=== PATIENT | male | born 1990 | race Caucasian/White ===

== ENCOUNTER 2017-03-05 10:31 | Inpatient (IN) | payer MEDICAID ==
[~2017-03-05] VITALS: Ht 157.5 cm; Wt 92.7 kg
[2017-03-05] VITALS (8 sets, daily range): BP systolic 108–126; BP diastolic 57–83; PULSE 69–98; RESP 16–20; TEMP 97.4–98.7; O2SAT 97–100
[~2017-03-05 10:31] MED LIST: ARIP1TAB13 PO; CITA40TA4 PO; CLON0.1T PO; DIVA250T PO; DIVA500T PO; FERR325T2 PO; FLUT1SPR5 EACH NARE; GLYC1TAB15 PO; HYDR-3580 PO; MOBI15TA PO; MONT10TA4 PO; OMEP40CA2 PO; OXYB5TAB10 PO; TRAZ50TA12 PO; [UNRECOGNIZED DRUG - CODE]
[2017-03-05] MEDS ORDERED: SODIUM CHLOR 0.9% 1000 ML INJ 1,000 ML IV SCH (11:06)
--- NOTE | 2017-03-05 11:13 | PD ---
HPI Chief Complaint: Abnormal Results Time Seen by Provider: 10:49 Travel History International Travel<30 days: No Contact w/Intl Traveler<30days: No Traveled to known affect area: No History of Present Illness HPI The patient is a 26-year-old male who presents emergency department for generalized malaise, edema, and constipation. The patient has a history of cerebral palsy, has a suprapubic catheter in place and has a normal history of constipation in the right upper colon, has a special pigtail catheter that can be irrigated every other day. However, the mother states he was irrigated yesterday and the patient had no bowel movement. The patient is followed by Dr. Storm in [place], [place]. The patient is followed by his urologist, Dr. Sena, who changed out his catheter earlier today and sent him to the emergency department for further evaluation of generalized edema. Patient does have a history of edema to lower extremity is, now notes he has edema to the face and lower extremities. The mother also states the patient's abdomen appears somewhat distended. She states she has a history of a large ventral hernia. The patient denies any chest pain, shortness breath, fever, chills, or sweats. PFSH Past Medical History Hx Anticoagulant Therapy: Yes ("THINKS SO" PER CAREGIVER) Anxiety: Yes Cardiovascular Problems: Yes Diminished Hearing: No Gastrointestinal Disorders: Yes Psychiatric: Yes Respiratory: Yes Tetanus Vaccination: < 5 Years Influenza Vaccination: Yes Past Surgical History Abdominal Surgery: Yes Appendectomy: Yes Other Surgery: Yes Social History Alcohol Use: No Tobacco Use: No Substance Use: No (pt denies) Allergies-Medications (Allergen,Severity, Reaction): Coded Allergies: Contrast Media (Verified Allergy, Severe, Hives, 03/05/17) Paxil (Verified Allergy, Severe, Hives, 03/05/17) Tegretol (Verified Allergy, Severe, Irritability/Anxiety, 03/05/17) Theophylline (Verified Allergy, Severe, Shortness of Breath, 03/05/17) Shellfish (Verified Allergy, Unknown, swelling, 03/05/17) Prozac (Verified Adverse Reaction, Severe, Confusion, 03/05/17) Tofranil (Verified Adverse Reaction, Severe, Confusion, 03/05/17) Tomato (Verified Adverse Reaction, Unknown, bleeding, 03/05/17) Reported Meds & Prescriptions Reported Meds & Active Scripts Active Reported Flonase Nasal [place] (Fluticasone Nasal [place]) 50 Mcg/Act [place] 50 Mcg EACH NARE DAILY Ferrous Sulfate DR (Ferrous Sulfate) 325 Mg Tabdr 325 Ml PO HS Trazodone (Trazodone HCl) 50 Mg Tab 100 Mg PO HS Hydrocodone-Acetaminophen 7.5-325 mg Tab 1 Tab PO Q8HR PRN Clonidine (Clonidine HCl) 0.1 Mg Tab 0.1 Mg PO BID Montelukast (Montelukast Sodium) 10 Mg Tab 10 Mg PO HS Mobic (Meloxicam) 15 Mg Tab 15 Mg PO HS Citalopram (Citalopram Hydrobromide) 40 Mg Tab 40 Mg PO HS Divalproex DR (Divalproex Sodium) 500 Mg Tabdr 500 Mg PO BID Glycopyrrolate 2 Mg Tab 1 Tab PO TID Ditropan (Oxybutynin Chloride) 5 Mg Tab 5 Mg PO TID Omeprazole 40 Mg Cap 40 Mg PO DAILY Aripiprazole 15 Mg Tab 15 Mg PO DAILY Review of Systems Except as stated in HPI: all other systems reviewed are Neg General / Constitutional: No: Fever Cardiovascular: No: Chest Pain or Discomfort Respiratory: No: Shortness of Breath Gastrointestinal: Positive: Abdominal Pain, Constipation, Changes in Bowel Habits, No: Nausea, Vomiting Genitourinary: Positive: Other, No: Dysuria Musculoskeletal: Positive: Edema Physical Exam Narrative GENERAL: Awake, alert, pleasant 26-year-old male who appears his stated age and is in no acute respiratory distress. SKIN: Focused skin assessment warm/dry. HEAD: Atraumatic. Normocephalic. EYES: Pupils equal and round. No scleral icterus. No injection or drainage. ENT: No nasal bleeding or discharge. Mucous membranes pink and moist. NECK: Trachea midline. No JVD. CARDIOVASCULAR: Regular rate and rhythm. No murmur appreciated. RESPIRATORY: No accessory muscle use. Clear to auscultation. Breath sounds equal bilaterally. GASTROINTESTINAL: Abdomen soft, mildly distended, suprapubic catheter noted and special catheter placed the right lower quadrant. Rectal: No fecal impaction. MUSCULOSKELETAL: Mild pitting edema to lower extremity is bilateral. Positive distal pulses. NEUROLOGICAL: Awake and alert. No obvious cranial nerve deficits. Motor grossly within normal limits. Normal speech. PSYCHIATRIC: Appropriate mood and affect; insight and judgment normal. Data Data Last Documented VS Vital Signs Date Time Temp Pulse Resp B/P Pulse Ox O2 Delivery O2 Flow Rate FiO2 03/05/17 12:42 97.8 69 17 121/83 100 Nasal Cannula 3 Orders Complete Blood Count With Diff (03/05/17 11:06) Comprehensive Metabolic Panel (03/05/17 11:06) Lipase (03/05/17 11:06) Lactic Acid (03/05/17 11:06) Urinalysis - C+S If Indicated (03/05/17 11:06) Ct Abd/Pel W/O Iv Contrast (03/05/17 11:06) Iv Access Insert/Monitor (03/05/17 11:06) Ecg Monitoring (03/05/17 11:06) Oximetry (03/05/17 11:06) Ondansetron Inj (Zofran Inj) (03/05/17 11:15) Sodium Chlor 0.9% 1000 Ml Inj (Ns 1000 M (03/05/17 11:06) Sodium Chloride 0.9% Flush (Ns Flush) (03/05/17 11:15) Valproic Acid (Depakene) (03/05/17 11:06) Chest, Single Ap (03/05/17 ) Labs Laboratory Tests Test 03/05/17 11:20 White Blood Count 10.1 TH/MM3 Red Blood Count 4.09 MIL/MM3 Hemoglobin 12.1 GM/DL Hematocrit 35.8 % Mean Corpuscular Volume 87.5 FL Mean Corpuscular Hemoglobin 29.6 PG Mean Corpuscular Hemoglobin 33.9 % Concent Red Cell Distribution Width 14.6 % Platelet Count 158 TH/MM3 Mean Platelet Volume 8.4 FL Neutrophils (%) (Auto) 64.6 % Lymphocytes (%) (Auto) 27.5 % Monocytes (%) (Auto) 5.9 % Eosinophils (%) (Auto) 1.4 % Basophils (%) (Auto) 0.6 % Neutrophils # (Auto) 6.5 TH/MM3 Lymphocytes # (Auto) 2.8 TH/MM3 Monocytes # (Auto) 0.6 TH/MM3 Eosinophils # (Auto) 0.1 TH/MM3 Basophils # (Auto) 0.1 TH/MM3 CBC Comment DIFF FINAL Differential Comment Urine Color COLORLESS Urine Turbidity CLEAR Urine pH 7.5 Urine Specific [place] 1.002 Urine Protein NEG mg/dL Urine Glucose (UA) NEG mg/dL Urine Ketones NEG mg/dL Urine Occult Blood NEG Urine Nitrite NEG Urine Bilirubin NEG Urine Urobilinogen LESS THAN 2.0 MG/DL Urine Leukocyte Esterase SMALL Urine RBC 1 /hpf Urine WBC 5 /hpf Urine Squamous Epithelial <1 /hpf Cells Urine Mucus FEW /lpf Microscopic Urinalysis Comment CULT NOT INDICATED Sodium Level 125 MEQ/L Potassium Level 4.2 MEQ/L Chloride Level 92 MEQ/L Carbon Dioxide Level 23.2 MEQ/L Anion Gap 10 MEQ/L Blood Urea Nitrogen 5 MG/DL Creatinine 0.41 MG/DL Estimat Glomerular Filtration 251 ML/MIN Rate Random Glucose 83 MG/DL Lactic Acid Level 0.9 mmol/L Calcium Level 8.5 MG/DL Total Bilirubin 0.6 MG/DL Aspartate Amino Transf 14 U/L (AST/SGOT) Alanine Aminotransferase 19 U/L (ALT/SGPT) Alkaline Phosphatase 70 U/L Total Protein 6.5 GM/DL Albumin 3.2 GM/DL Lipase 70 U/L Valproic Acid (Depakene) Level 94 MCG/ML MDM Medical Decision Making Medical Screen Exam Complete: Yes Emergency Medical Condition: Yes Medical Record Reviewed: Yes Interpretation(s) Last Impressions Abdomen/Pelvis CT 03/05/17 1106 Signed Impressions: Service Date/Time: Sunday, March 05, 2017 12:02 - CONCLUSION: Mild right lung base atelectasis and/or infiltrate is seen and moderate amount of stool. Jacqueline Lopez MD Chest X-Ray 03/05/17 0000 Signed Impressions: Service Date/Time: Sunday, March 05, 2017 11:16 - CONCLUSION: 1. No acute cardiopulmonary findings. 2. Christie rods throughout the thoracic spine. Canelo Calloway MD Laboratory Tests Test 03/05/17 11:20 White Blood Count 10.1 TH/MM3 Red Blood Count 4.09 MIL/MM3 Hemoglobin 12.1 GM/DL Hematocrit 35.8 % Mean Corpuscular Volume 87.5 FL Mean Corpuscular Hemoglobin 29.6 PG Mean Corpuscular Hemoglobin 33.9 % Concent Red Cell Distribution Width 14.6 % Platelet Count 158 TH/MM3 Mean Platelet Volume 8.4 FL Neutrophils (%) (Auto) 64.6 % Lymphocytes (%) (Auto) 27.5 % Monocytes (%) (Auto) 5.9 % Eosinophils (%) (Auto) 1.4 % Basophils (%) (Auto) 0.6 % Neutrophils # (Auto) 6.5 TH/MM3 Lymphocytes # (Auto) 2.8 TH/MM3 Monocytes # (Auto) 0.6 TH/MM3 Eosinophils # (Auto) 0.1 TH/MM3 Basophils # (Auto) 0.1 TH/MM3 CBC Comment DIFF FINAL Differential Comment Urine Color COLORLESS Urine Turbidity CLEAR Urine pH 7.5 Urine Specific [place] 1.002 Urine Protein NEG mg/dL Urine Glucose (UA) NEG mg/dL Urine Ketones NEG mg/dL Urine Occult Blood NEG Urine Nitrite NEG Urine Bilirubin NEG Urine Urobilinogen LESS THAN 2.0 MG/DL Urine Leukocyte Esterase SMALL Urine RBC 1 /hpf Urine WBC 5 /hpf Urine Squamous Epithelial <1 /hpf Cells Urine Mucus FEW /lpf Microscopic Urinalysis Comment CULT NOT INDICATED Sodium Level 125 MEQ/L Potassium Level 4.2 MEQ/L Chloride Level 92 MEQ/L Carbon Dioxide Level 23.2 MEQ/L Anion Gap 10 MEQ/L Blood Urea Nitrogen 5 MG/DL Creatinine 0.41 MG/DL Estimat Glomerular Filtration 251 ML/MIN Rate Random Glucose 83 MG/DL Lactic Acid Level 0.9 mmol/L Calcium Level 8.5 MG/DL Total Bilirubin 0.6 MG/DL Aspartate Amino Transf 14 U/L (AST/SGOT) Alanine Aminotransferase 19 U/L (ALT/SGPT) Alkaline Phosphatase 70 U/L Total Protein 6.5 GM/DL Albumin 3.2 GM/DL Lipase 70 U/L Valproic Acid (Depakene) Level 94 MCG/ML Differential Diagnosis Differential diagnosis includes hyponatremia, hypoalbuminemia, volume overload, small bowel obstruction, large bowel obstruction, incarcerated hernia, UTI Narrative Course IV was established, labs are drawn and sent, and the patient was placed on cardiac telemetry monitoring and continuous pulse oximetry monitoring. Chest x- rays obtained. Noncontrast CT of the abdomen and pelvis was performed. The patient was placed on IV fluids. X-ray reveals poor inspiration. CT the abdomen and pelvis reveals a moderate amount of stool and possible atelectasis versus infiltrate in right lower lung field. Patient's sodium was low at 125, there are no old labs to evaluate or compare. The patient is on several medicines that have anticholinergic effects and may decrease his stool motility in conjunction with his cerebral palsy, however, the patient has severe secretions and cannot stop the glycopyrrolate. Therefore, patient will be 23 hour observation for bowel regimen and reevaluation of his sodium levels. The on-call medical team was paged for admission. Physician Communication Physician Communication The on-call medical team was paged for 23 hour observation. I discussed the patient with Dr. Griffiths who agrees with 23 hour observation. Diagnosis Primary Impression: Hyponatremia Additional Impressions: Edema Qualified Code: R60.1 - Generalized edema Constipation Qualified Code: K59.00 - Constipation, unspecified constipation type Admitting Information Admitting Physician Requests: Observation Condition: Stable Epi Stephenson MD Mar 05, 2017 11:12
[2017-03-05] MEDS ORDERED: ONDANSETRON HCL 4 MG/2 ML VIAL IVP ONE (11:15)
[2017-03-05] MEDS: SODIUM CHLORIDE 0.9% FLUSH 10 ML FLUSH IV FLUSH PRN ×2 (11:21→12:26)
[2017-03-05 11:48] LABS: AUTOMATED NEUTROPHIL # 6.5 TH/MM3 (1.8-7.7); BASOPHIL # 0.1 TH/MM3 (0-0.2); BASOPHIL % 0.6 % (0.0-2.0); EOSINOPHIL # 0.1 TH/MM3 (0-0.4); EOSINOPHIL % 1.4 % (0.0-4.0); HEMATOCRIT 35.8 % (39.0-51.0); HEMO FLAGS DIFF FINAL; LYMPH % 27.5 % (9.0-44.0); LYMPHOCYTE # 2.8 TH/MM3 (1.0-4.8); MEAN CELL VOLUME 87.5 FL (80.0-100.0); MEAN CORPUSCULAR HEMOGLOBIN 29.6 PG (27.0-34.0); MEAN CORPUSCULAR HGB CONC 33.9 % (32.0-36.0); MONO % 5.9 % (0.0-8.0); NEUT % 64.6 % (16.0-70.0); PLATELET COUNT 158 TH/MM3 (150-450); RED BLOOD COUNT 4.09 MIL/MM3 (4.50-5.90); RED CELL DISTRIBUTION WIDTH 14.6 % (11.6-17.2); WHITE BLOOD COUNT 10.1 TH/MM3 (4.0-11.0)
[2017-03-05 12:08] LABS: ALT (GPT) 19 U/L (12-78); ANION GAP 10 MEQ/L (5-15); AST (GOT) 14 U/L (15-37); BICARBONATE 23.2 MEQ/L (21.0-32.0); BLOOD UREA NITROGEN 5 MG/DL (7-18); CHLORIDE 92 MEQ/L (98-107); GLOMERULAR FILTRATION RATE 251 ML/MIN (>89); POTASSIUM 4.2 MEQ/L (3.5-5.1); SODIUM (NA) 125 MEQ/L (136-145)
[2017-03-05 12:10] LABS: ALKALINE PHOSPHATASE 70 U/L (45-117); TOTAL BILIRUBIN ADULT 0.6 MG/DL (0.2-1.0)
[2017-03-05 12:17] LABS: BLOOD, URINE NEG (NEG); COMMENT (UR) CULT NOT INDICATED; CULTURE IF INDICATED CULT NOT INDICATED; GLUCOSE,URINE NEG (NEG); KETONE, URINE NEG (NEG); MUCUS URINE FEW /lpf (OCC); NITRITE,URINE NEG (NEG); PH, URINE 7.5 (5.0-8.5); SQUAMOUS EPITHELIAL CELL URINE <1 /hpf (0-5); URINE COLOR COLORLESS (YELLW/STRAW)
--- NOTE | 2017-03-05 12:47 | RADRPT ---
EXAM DATE/TIME: 03/05/2017 11:16 [facility] COMPARISON: No previous studies available for comparison. INDICATIONS : Short of breath, blood in urine, sent by urologist MEDICAL HISTORY : cerebral palsy, muscular dystrophy, hx of collapsed lungs, pneumonia, on O2 at night. sleep apnea SURGICAL HISTORY : super pubic catheter changed every week and 1/2, back surgery ENCOUNTER: Initial ACUITY: 1 day PAIN SCORE: Non-responsive. LOCATION: Bilateral chest FINDINGS: The lungs appear clear. The heart is normal in size. There is elevation of the hemidiaphragms. There are Christie rods fusing the spine. CONCLUSION: 1. No acute cardiopulmonary findings. 2. Christie rods throughout the thoracic spine. Canelo Calloway MD on March 05, 2017 at 12:44 Board Certified Radiologist. This report was verified electronically.
--- NOTE | 2017-03-05 12:48 | RADRPT ---
EXAM DATE/TIME: 03/05/2017 12:02 [facility] COMPARISON: No previous studies available for comparison. INDICATIONS : Weakness and generalized edema ORAL CONTRAST: No oral contrast ingested. RADIATION DOSE: 21.40 CTDIvol (mGy) MEDICAL HISTORY : Seizures. Cardiovascular disease Gastroesophageal reflux disease. SURGICAL HISTORY : g-tube ENCOUNTER: Initial ACUITY: 1 week PAIN SCALE: 0/10 LOCATION: abdomen TECHNIQUE: Volumetric scanning of the abdomen and pelvis was performed. Using automated exposure control and ad justment of the mA and/or kV according to patient size, radiation dose was kept as low as reasonably achievable to obtain optimal diagnostic quality images. DICOM format image data is available electro nically for review and comparison. FINDINGS: CT Abdomen: The liver, spleen, pancreas, kidneys, adrenals are unremarkable. There is no evidence for any appreciable pathological adenopathy, free fluid, or bowel obstruction. Mild right lung base atel ectasis and/or infiltrate is seen. CT pelvis: There is no evidence for mass, abscess formation, or any significant adenopathy within the pelvis. A cecal tube is in place and there is also a Mag[place]on catheter inside the bladder. There is mod erate amount of stool throughout the colon. There are postsurgical changes in the lower thoracic spin e and the entire lumbar spine. CONCLUSION: Mild right lung base atelectasis and/or infiltrate is seen and moderate amount of sto ol. KArlene Lopez MD on March 05, 2017 at 12:43 Board Certified Radiologist. This report was verified electronically.
--- NOTE | 2017-03-05 14:06 | HHI.HP ---
[facility] Migeul Ashton MD Admission Diagnosis hyponatremia, constipation, generalized edema Diagnoses: Chief Complaint: Generalized edema and fatigue Travel History International Travel<30 Days: No Contact w/Intl Traveler <30 Da: No Traveled to Known Affected Are: No History of Present Illness 26-year-old male with cerebral palsy, seizure, depression, and hypertension who presented with fatigue and generalized swelling. History taken from patient and his caregiver who is at the bedside. When patient presented in the ED there is no swelling noted. Patient stated that he woke up this morning and he has swelling in his face, hand, abdomen, and legs. He also stated that he felt very fatigued today. Yesterday patient did have decreased oral intake. He has been constipated since Saturday. Patient has a history of constipation usually has a bowel movement every other day special pigtail catheter is irrigated. Yesterday the pigtail was irrigated by his mother in which she still did not have any bowel movement. Patient had MiraLAX and Colace with no improvement. He stated that mimic milk of mag causes upset stomach. During the episode of generalized swelling patient deny any shortness of breathing, chest pain, cough, palpitation, lightheadedness or dizziness. Patient stated that swelling has resolved completely. His caregiver also agreed. Patient also had bladder spasm this morning which is usual for him. He saw Dr. Sena, Urologist this morning which his supra pubic catheter was changed today. He usually sees him every 2 weeks to get a change. Review of Systems Constitutional: COMPLAINS OF: Fatigue, DENIES: Diaphoretic episodes, Fever, Weight gain, Weight loss, Chills, Dizziness, Change in appetite, Night Sweats Endocrine: DENIES: Heat/cold intolerance, Polydipsia, Polyuria, Polyphagia Eyes: DENIES: Blurred vision, Diplopia, Eye inflammation, Eye pain, Vision loss , Photosensitivity, Double Vision Ears, nose, mouth, throat: DENIES: Tinnitus, Hearing loss, Vertigo, Nasal discharge, Oral lesions, Throat pain, Hoarseness, Ear Pain, Running Nose, Epistaxis, Sinus Pain, Toothache, Odynophagia Respiratory: DENIES: Apneas, Cough, Snoring, Wheezing, Hemoptysis, Sputum production, Shortness of breath Cardiovascular: DENIES: Chest pain, Palpitations, Syncope, Dyspnea on Exertion , PND, Lower Extremity Edema, Orthopnea, Claudication Gastrointestinal: DENIES: Abdominal pain, Black stools, Bloody stools, Constipation, Diarrhea, Nausea, Vomiting, Difficulty Swallowing, Anorexia Genitourinary: DENIES: Sexual dysfunction, Urinary frequency, Urinary incontinence, Urgency, Hematuria, Dysuria, Nocturia, Penile Discharge, Testicular Pain, Testicular Swelling Musculoskeletal: DENIES: Joint pain, Muscle aches, Stiffness, Joint Swelling, Back pain, Neck pain Integumentary: DENIES: Abnormal pigmentation, Nail changes, Pruritus, Rash Hematologic/lymphatic: DENIES: Bruising, Lymphadenopathy Immunologic/allergic: DENIES: Eczema, Urticaria Neurologic: DENIES: Abnormal gait, Headache, Localized weakness, Paresthesias, Seizures, Speech Problems, Tremor, Poor Balance Psychiatric: DENIES: Anxiety, Confusion, Mood changes, Depression, Hallucinations, Agitation, Suicidal Ideation, Homicidal Ideation, Delusions Past Family Social History Past Medical History Cerebral palsy Seizure disorder Depression Hypertension Allergic rhinitis GERD Chronic back pain Obstructive sleep apnea Past Surgical History G-tube placement Super pubic catheter Special pigtail placement Multiple foot surgery Multiple back surgeries Reported Medications Flonase Nasal [place] (Fluticasone Nasal [place]) 50 Mcg/Act [place] 50 Mcg EACH NARE DAILY Ferrous Sulfate DR (Ferrous Sulfate) 325 Mg Tabdr 325 Ml PO HS Trazodone (Trazodone HCl) 50 Mg Tab 100 Mg PO HS Hydrocodone-Acetaminophen 7.5-325 mg Tab 1 Tab PO Q8HR PRN Clonidine (Clonidine HCl) 0.1 Mg Tab 0.1 Mg PO BID Montelukast (Montelukast Sodium) 10 Mg Tab 10 Mg PO HS Mobic (Meloxicam) 15 Mg Tab 15 Mg PO HS Citalopram (Citalopram Hydrobromide) 40 Mg Tab 40 Mg PO HS Divalproex DR (Divalproex Sodium) 500 Mg Tabdr 500 Mg PO BID Glycopyrrolate 2 Mg Tab 1 Tab PO TID Ditropan (Oxybutynin Chloride) 5 Mg Tab 5 Mg PO TID Omeprazole 40 Mg Cap 40 Mg PO DAILY Aripiprazole 15 Mg Tab 15 Mg PO DAILY Allergies: Coded Allergies: Contrast Media (Verified Allergy, Severe, Hives, 03/05/17) Paxil (Verified Allergy, Severe, Hives, 03/05/17) Tegretol (Verified Allergy, Severe, Irritability/Anxiety, 03/05/17) Theophylline (Verified Allergy, Severe, Shortness of Breath, 03/05/17) Shellfish (Verified Allergy, Unknown, swelling, 03/05/17) Prozac (Verified Adverse Reaction, Severe, Confusion, 03/05/17) Tofranil (Verified Adverse Reaction, Severe, Confusion, 03/05/17) Tomato (Verified Adverse Reaction, Unknown, bleeding, 03/05/17) Active Ordered Medications Current Medications Ondansetron HCl 4 mg 4 mg ONCE ONCE IVP Last administered on 03/05/17 11:21; Start 03/05/17 at 11:15; Stop 03/05/17 at 11:16; Status DC Sodium Chloride (NS 1000 ml Inj) 1,000 ml @ 125 mls/hr Q8H IV Last administered on 03/05/17 11:21; Start 03/05/17 at 11:06; Stop 03/05/17 at 19:05 Sodium Chloride (NS Flush) 2 ml UNSCH PRN IV FLUSH FLUSH AFTER USING IV ACCESS Last administered on 03/05/17 12:26; Start 03/05/17 at 11:15 Family History Patient is adopted. Does not know his family history. Social History Patient lives at home with his adopted parents and caregiver. Does not smoke, drink alcohol, illicit drug use. Physical Exam Vital Signs Vital Signs Date Time Temp Pulse Resp B/P Pulse Ox O2 Delivery O2 Flow Rate FiO2 03/05/17 12:42 97.8 69 17 121/83 100 Nasal Cannula 3 03/05/17 11:10 20 99 Nasal Cannula 3 03/05/17 10:53 72 17 98 Room Air 03/05/17 10:33 97.7 78 16 108/61 97 Room Air Physical Exam GENERAL: This is a well-nourished, well-developed patient, in no apparent distress. SKIN: No rashes, ecchymoses or lesions. Cool and dry. HEAD: Atraumatic. Normocephalic. No temporal or scalp tenderness. EYES: Pupils equal round and reactive. Extraocular motions intact. No scleral icterus. No injection or drainage. ENT: Nose without bleeding, purulent drainage or septal hematoma. Throat without erythema, tonsillar hypertrophy or exudate. Uvula midline. Airway patent. NECK: Trachea midline. No JVD or lymphadenopathy. Supple, nontender, no meningeal signs. CARDIOVASCULAR: Regular rate and rhythm without murmurs, gallops, or rubs. RESPIRATORY: Clear to auscultation. Breath sounds equal bilaterally. No wheezes , rales, or rhonchi. GASTROINTESTINAL: Abdomen soft, non-tender, nondistended. No hepato-splenomegaly , or palpable masses. No guarding. Suprapubic catheter in place. Pigtail catheter also in place. PEG tube is also placed. All dry, clean and intact. MUSCULOSKELETAL: Extremities without clubbing, cyanosis, or edema. No joint tenderness, effusion, or edema noted. No calf tenderness. Negative Homans sign bilaterally. NEUROLOGICAL: Awake and alert. Cranial nerves II through XII intact. Motor and sensory grossly within normal limits. Normal speech, but slow. Laboratory Laboratory Tests Test 03/05/17 11:20 White Blood Count 10.1 Red Blood Count 4.09 Hemoglobin 12.1 Hematocrit 35.8 Mean Corpuscular Volume 87.5 Mean Corpuscular Hemoglobin 29.6 Mean Corpuscular Hemoglobin 33.9 Concent Red Cell Distribution Width 14.6 Platelet Count 158 Mean Platelet Volume 8.4 Neutrophils (%) (Auto) 64.6 Lymphocytes (%) (Auto) 27.5 Monocytes (%) (Auto) 5.9 Eosinophils (%) (Auto) 1.4 Basophils (%) (Auto) 0.6 Neutrophils # (Auto) 6.5 Lymphocytes # (Auto) 2.8 Monocytes # (Auto) 0.6 Eosinophils # (Auto) 0.1 Basophils # (Auto) 0.1 CBC Comment DIFF FINAL Differential Comment Urine Color COLORLESS Urine Turbidity CLEAR Urine pH 7.5 Urine Specific [place] 1.002 Urine Protein NEG Urine Glucose (UA) NEG Urine Ketones NEG Urine Occult Blood NEG Urine Nitrite NEG Urine Bilirubin NEG Urine Urobilinogen LESS THAN 2.0 Urine Leukocyte Esterase SMALL Urine RBC 1 Urine WBC 5 Urine Squamous Epithelial <1 Cells Urine Mucus FEW Microscopic Urinalysis Comment CULT NOT INDICATED Sodium Level 125 Potassium Level 4.2 Chloride Level 92 Carbon Dioxide Level 23.2 Anion Gap 10 Blood Urea Nitrogen 5 Creatinine 0.41 Estimat Glomerular Filtration 251 Rate Random Glucose 83 Lactic Acid Level 0.9 Calcium Level 8.5 Total Bilirubin 0.6 Aspartate Amino Transf 14 (AST/SGOT) Alanine Aminotransferase 19 (ALT/SGPT) Alkaline Phosphatase 70 Total Protein 6.5 Albumin 3.2 Lipase 70 Valproic Acid (Depakene) Level 94 Result Diagram: 03/05/17 1120 03/05/17 1120 Imaging Last Impressions Abdomen/Pelvis CT 03/05/17 1106 Signed Impressions: Service Date/Time: Sunday, March 05, 2017 12:02 - CONCLUSION: Mild right lung base atelectasis and/or infiltrate is seen and moderate amount of stool. Jacqueline Lopez MD Chest X-Ray 03/05/17 0000 Signed Impressions: Service Date/Time: Sunday, March 05, 2017 11:16 - CONCLUSION: 1. No acute cardiopulmonary findings. 2. Christie rods throughout the thoracic spine. Canelo Calloway MD Assessment and Plan Assessment and Plan 26-year-old male with history of cerebral palsy, hypertension, seizure disorder , depression, multiple back surgeries for surgery who presented with fatigue and generalized edema that resolved quickly Fatigue -Labs review sodium 125. Imaging also review significant for large amount of stools but no obstruction. Chest x-ray negative. Unsure patient's baseline. Will need to obtain medical records from his PCP for comparison. Patient is on multiple medications that can cause hyponatremia. -Also may be secondary to mild dehydration since patient had decreased oral intake since yesterday. -We'll treat underlying conditions and give IV fluids. Generalized swelling -Patient does not show any signs of swelling. Per history it resolved quickly. There is no suspicion for any allergic reaction. -Will have to continue to monitor. Albumin 3.2. -Will get an echo. Hyponatremia, euvolemic -Unsure patient's baseline. He is on medications that can cause hyponatremia. Order placed for nurse to obtain her recent BMP stat. -Will gently give IV fluids. -Neuro checks. Continue to trend sodium. Constipation -Patient has not had a bowel movement for 4 days. He usually a bowel movement every other day. Patient already tried MiraLAX and Colace. He also had his pigtail flush. -Will give 1 dose of lactulose. Status post suprapubic catheter -Being managed by Dr. Sena. Patient had a change today. Seizure disorder/hypertension/depression/allergic rhinitis/GERD/chronic back pain/structures sleep apnea/status post PEG -Will resume home medication except for trazodone since patient is fatigued. -Will resume BiPAP 10 over 5. Patient also on 3 L of oxygen at home. DVT prophylaxis -SCDs Code Status full Discussed Condition With patient and his caregiver Vivian Griffiths MD Mar 05, 2017 14:06
[2017-03-05] MEDS ORDERED: ACETAMINOPHEN/HYDROcodone 325 MG/7.5 MG TAB PO PRN (14:15)
[2017-03-05] MEDS ORDERED: ACETAMINOPHEN 325 MG TAB PO PRN (14:15)
[2017-03-05] MEDS ORDERED: ONDANSETRON HCL 4 MG/2 ML VIAL IVP PRN (14:15)
[2017-03-05] MEDS ORDERED: SODIUM CHLORIDE 0.9% FLUSH 10 ML FLUSH IV FLUSH PRN (14:15)
[2017-03-05] MEDS ORDERED: NALOXONE HCL 0.4 MG/ML AMP IV PRN (14:15)
[2017-03-05] MEDS ORDERED: LACTULOSE SYRUP 20 GM/30 ML CUP PO ONE (15:30)
[2017-03-05] MEDS: PANTOPRAZOLE SOD 40 MG DELAYED RELEASE TAB PO SCH (15:57)
[2017-03-05] MEDS: SODIUM CHLOR 0.9% 1000 ML INJ 1,000 ML IV SCH (15:59)
[2017-03-05] MEDS: OXYBUTYNIN CHLORIDE 5 MG TAB PO SCH (17:54)
[2017-03-05] MEDS: GLYCOPYRROLATE 2 MG TAB PO SCH (18:16)
[2017-03-05] MEDS ORDERED: FERROUS SULFATE 325 MG (65 MG ELEMENTAL IRON) TAB PO SCH (21:00)
[2017-03-05] MEDS ORDERED: CITALOPRAM HYDROBROMIDE 40 MG TAB PO SCH (21:00)
[2017-03-05] MEDS ORDERED: MELOXICAM 15 MG TAB PO SCH (21:00)
[2017-03-05] MEDS ORDERED: MONTELUKAST SODIUM 10 MG TAB PO SCH (21:00)
[2017-03-05] MEDS: SODIUM CHLORIDE 0.9% FLUSH 10 ML FLUSH IV FLUSH SCH (23:00)
[2017-03-05] MEDS: DIVALPROEX DR 500 MG TABEC PO SCH (23:00)
[2017-03-05] MEDS: cloNIDine HCL 0.1 MG TAB PO SCH (23:01)
[2017-03-06] VITALS: BP 101/58; PULSE 74; RESP 20; TEMP 97.3; O2SAT 97
[2017-03-06] MEDS: FLUTICASONE PROPIONATE 50 MCG/ACT 16 GM NASAL SPRAY NASAL SCH ×2 (00:03→09:33)
[2017-03-06 01:30] VITALS: O2SAT 97
[2017-03-06 04:23] VITALS: BP 102/61; PULSE 69; RESP 19; TEMP 97.5; O2SAT 95; O2SAT 97
[2017-03-06] MEDS: SODIUM CHLOR 0.9% 1000 ML INJ 1,000 ML IV SCH (06:55)
[2017-03-06 08:03] VITALS: PULSE 80
[2017-03-06] MEDS ORDERED: ARIPiprazole 15 MG TAB PO SCH (09:00)
[2017-03-06] MEDS ORDERED: LACTULOSE SYRUP 20 GM/30 ML CUP PO PRN (09:00)
[2017-03-06] MEDS: SODIUM CHLORIDE 0.9% FLUSH 10 ML FLUSH IV FLUSH SCH (09:00)
[2017-03-06 09:26] VITALS: BP 103/57; PULSE 72; RESP 18; TEMP 97.2; O2SAT 94
[2017-03-06] MEDS: OXYBUTYNIN CHLORIDE 5 MG TAB PO SCH ×2 (09:32→12:47)
[2017-03-06] MEDS: GLYCOPYRROLATE 2 MG TAB PO SCH ×2 (09:32→12:47)
[2017-03-06] MEDS: DIVALPROEX DR 500 MG TABEC PO SCH (09:32)
[2017-03-06] MEDS: PANTOPRAZOLE SOD 40 MG DELAYED RELEASE TAB PO SCH (09:32)
[2017-03-06] MEDS: cloNIDine HCL 0.1 MG TAB PO SCH (09:33)
[2017-03-06 09:34] LABS: MEAN CELL VOLUME 87.7 FL (80.0-100.0); MEAN CORPUSCULAR HEMOGLOBIN 29.5 PG (27.0-34.0); MEAN CORPUSCULAR HGB CONC 33.6 % (32.0-36.0); PLATELET COUNT 149 TH/MM3 (150-450); RED BLOOD COUNT 4.11 MIL/MM3 (4.50-5.90); RED CELL DISTRIBUTION WIDTH 14.7 % (11.6-17.2); REVIEW FLAG FINAL; WHITE BLOOD COUNT 7.9 TH/MM3 (4.0-11.0)
[2017-03-06 10:04] LABS: BICARBONATE 26.7 MEQ/L (21.0-32.0); POTASSIUM 4.3 MEQ/L (3.5-5.1)
[2017-03-06 12:00] VITALS: BP 107/64; PULSE 78; RESP 18; TEMP 96.3; O2SAT 98
[2017-03-06] MEDS ORDERED: PERI8.6T PO (13:33)
[2017-03-06] MEDS ORDERED: MILKSUS PO (13:33)
--- NOTE | 2017-03-06 13:36 | HHI.DCPOC ---
Discharge Care Plan Diagnosis: (1) Hyponatremia (2) Constipation Goals to Promote Your Health * To prevent worsening of your condition and complications * To maintain your health at the optimal level Directions to Meet Your Goals Take your medications as prescribed Follow your dietary instruction Follow activity as directed Keep your appointments as scheduled Take your immunizations and boosters as scheduled If your symptoms worsen call your PCP, if no PCP go to Urgent Care Center or Emergency Room Smoking is Dangerous to Your Health. Avoid second hand smoke Call the 24-hour hour crisis hotline for domestic abuse at Vivian Griffiths MD Mar 06, 2017 13:36
[2017-03-06] MEDS ORDERED: DOCUSATE SODIUM 50 MG/SENNA 8.6 MG TAB G-TUBE SCH (14:00)
[2017-03-06] MEDS ORDERED: MAGNESIUM HYDROXIDE SUSP 30 ML CUP G-TUBE ONE (14:00)
== END 2017-03-06 16:09 | disposition home or self-care (01) | DRG 641 ==
LOC: NEPD 10:31 → NEDA 13:48 → OBSVTOIN 15:10 → N04B 17:10
PROVIDERS: ADMIT Family Medicine; ATTEND Family Medicine
DX: E87.1 Hypo-osmolality and hyponatremia (principal); E86.0 Dehydration; K59.00 Constipation, unspecified; I10 Essential (primary) hypertension; N32.89 Other specified disorders of bladder; G47.33 Obstructive sleep apnea (adult) (pediatric); G40.909 Epilepsy, unspecified, not intractable, without status epilepticus; R60.1 Generalized edema; G80.9 Cerebral palsy, unspecified; F32.9 Major depressive disorder, single episode, unspecified; K21.9 Gastro-esophageal reflux disease without esophagitis; G89.29 Other chronic pain; M54.9 Dorsalgia, unspecified; Z99.81 Dependence on supplemental oxygen; Z93.1 Gastrostomy status; Z93.50 Unspecified cystostomy status
CPT/HCPCS: 71010; 74176; 80048; 80053; 80164; 81001; 83605; 83690; 85025; 85027; 94002; 96361; 96374; J2405; J7030

== ENCOUNTER 2017-05-30 14:39 | Emergency (ER) | payer MEDICAID ==
[~2017-05-30] VITALS: Ht 175.3 cm; Wt 85.0 kg
[~2017-05-30 14:39] MED LIST changes: -DIVA250T PO; +MILKSUS PO; +PERI8.6T PO; -[UNRECOGNIZED DRUG - CODE]
[2017-05-30 14:43] VITALS: BP 129/66; PULSE 103; RESP 22; TEMP 97.9; O2SAT 96
--- NOTE | 2017-05-30 15:55 | PD ---
HPI Chief Complaint: Complaint Time Seen by Provider: 15:45 Travel History International Travel<30 days: No Contact w/Intl Traveler<30days: No Traveled to known affect area: No History of Present Illness HPI 7-year-old male presents to the emergency department accompanied by his products mechanical design engineer with complaint of being informed of MRSA in his urine on Saturday. The patient is wheelchair-bound and has an indwelling Magallon catheter. He was told to come to the emergency department by his primary care provider, Dr. Sena, after the patient was complaining of feeling lethargic and weak today. He was treated with ciprofloxacin and switched to nitrofurantoin with no change in symptoms. Denies fever, vomiting. Reports bladder pain. Denies abdominal pain. Denies chest pain, shortness of breath. Has multiple allergies listed on the chart. Has no other medical complaints. No other modifying factors or associated signs and symptoms. PFSH Past Medical History Hx Anticoagulant Therapy: Yes ("THINKS SO" PER CAREGIVER) Asthma: Yes Anxiety: Yes Heart Rhythm Problems: No Cardiovascular Problems: Yes Diminished Hearing: No Gastrointestinal Disorders: Yes Genitourinary: Yes (s/p tube) Hypertension: Yes Musculoskeletal: Yes (quadraplegia) Neurologic: Yes (memory loss) Psychiatric: Yes Respiratory: Yes (sleep apnea) Seizures: Yes Past Surgical History Abdominal Surgery: Yes Appendectomy: Yes Eye Surgery: Yes Neurologic Surgery: Yes Other Surgery: Yes (spinal surgery) Social History Alcohol Use: No Tobacco Use: No Substance Use: No (pt denies) Allergies-Medications (Allergen,Severity, Reaction): Coded Allergies: carbamazepine (Unverified Allergy, Severe, Irritability/Anxiety, 04/30/17) diatrizoate meglumine (Unverified Allergy, Severe, Hives, 04/30/17) gadobenic acid (Unverified Allergy, Severe, Hives, 04/30/17) gadodiamide (Unverified Allergy, Severe, Hives, 04/30/17) gadoteridol (Unverified Allergy, Severe, Hives, 04/30/17) iodixanol (Unverified Allergy, Severe, Hives, 04/30/17) iohexol (Unverified Allergy, Severe, Hives, 04/30/17) paroxetine (Unverified Allergy, Severe, Hives, 04/30/17) theophylline (Unverified Allergy, Severe, Shortness of Breath, 04/30/17) shellfish derived (Unverified Allergy, Unknown, swelling, 04/30/17) fluoxetine (Unverified Adverse Reaction, Severe, Confusion, 04/30/17) imipramine (Unverified Adverse Reaction, Severe, Confusion, 04/30/17) tomato (Unverified Adverse Reaction, Unknown, bleeding, 04/30/17) Reported Meds & Prescriptions Reported Meds & Active Scripts Active Ditropan (Oxybutynin Chloride) 5 Mg Tab 5 Mg PO TID Milk of Magnesia Liq (Magnesium Hydroxide) 400 Mg/5 Ml Susp 30 Ml PO Q6H PRN Kalyn-Colace (Sennosides-Docusate Sodium) 8.6-50 Mg Tab 2 Tab PO BID PRN Reported Flonase Nasal [place] (Fluticasone Nasal [place]) 50 Mcg/Act [place] 50 Mcg EACH NARE DAILY Ferrous Sulfate DR (Ferrous Sulfate) 325 Mg Tabdr 325 Ml PO HS Trazodone (Trazodone HCl) 50 Mg Tab 100 Mg PO HS Hydrocodone-Acetaminophen 7.5-325 mg Tab 1 Tab PO Q8HR PRN Clonidine (Clonidine HCl) 0.1 Mg Tab 0.1 Mg PO BID Montelukast (Montelukast Sodium) 10 Mg Tab 10 Mg PO HS Mobic (Meloxicam) 15 Mg Tab 15 Mg PO HS Citalopram (Citalopram Hydrobromide) 40 Mg Tab 40 Mg PO HS Divalproex DR (Divalproex Sodium) 500 Mg Tabdr 500 Mg PO BID Glycopyrrolate 2 Mg Tab 1 Tab PO TID Omeprazole 40 Mg Cap 40 Mg PO DAILY Aripiprazole 15 Mg Tab 15 Mg PO DAILY Review of Systems Except as stated in HPI: all other systems reviewed are Neg Physical Exam Narrative GENERAL: Wheelchair-bound, male patient, in no acute distress; afebrile, nontoxic-appearing SKIN: Warm and dry. No rash. HEAD: Atraumatic. Normocephalic. EYES: Pupils equal and round. No scleral icterus. No injection or drainage. ENT: Mucosa pink and moist. NECK: Trachea midline. CARDIOVASCULAR: Regular rate and rhythm. No murmur appreciated. RESPIRATORY: No accessory muscle use. Clear to auscultation. Breath sounds equal bilaterally. No tachypnea or retractions. GASTROINTESTINAL: Abdomen soft, non-tender, nondistended. Hepatic and splenic margins not palpable. Bowel sounds are active 4 quadrants. Bladder with tenderness on palpation; nondistended. : Magallon catheter noted with cloudy, light yellow urine. MUSCULOSKELETAL: No obvious deformities. No clubbing. No cyanosis. No edema. NEUROLOGICAL: Awake and alert. Oriented 3. No obvious cranial nerve deficits. Motor grossly within normal limits. Normal speech. Moves all extremities. 5/5 strength to all extremities. PSYCHIATRIC: Appropriate mood and affect; insight and judgment normal. Data Data Last Documented VS Vital Signs Date Time Temp Pulse Resp B/P (MAP) Pulse Ox O2 Delivery O2 Flow Rate FiO2 05/30/17 14:43 97.9 103 22 129/66 (87) 96 Nasal Cannula Orders Orders Urinalysis - C+S If Indicated (05/30/17 15:21) Basic Metabolic Panel (Bmp) (05/30/17 15:42) Complete Blood Count With Diff (05/30/17 15:42) Urinary Catheter Insert/Apply (05/30/17 15:42) [facility] Medical Decision Making Medical Screen Exam Complete: Yes Emergency Medical Condition: Yes Medical Record Reviewed: Yes Differential Diagnosis Pyelonephritis, UTI, sepsis Narrative Course This is a 27-year-old wheelchair bound male that was sent by his primary care provider, Dr. Sena, for feeling lethargic and weak today. He is here with his products mechanical design engineer. Patient has an indwelling Magallon catheter and has been being treated for MRSA in his urine with ciprofloxacin and nitrofurantoin with no improvement in symptoms. He is afebrile and nontoxic-appearing. He denies fever or vomiting. I spoke with Dr. Lauren, my attending physician, and she recommended CBC, BMP, urinalysis and to replace Magallon catheter. Orders entered. 1554: Patient moved to medical bed for further treatment and evaluation. See Dr. Lauren's note for final patient disposition. Mony Piña May 30, 2017 15:55
--- NOTE | 2017-05-30 16:06 | PD ---
Physical Exam Time Seen by Provider: 16:06 Narrative Please refer to previous providers documentation for details surrounding the patients current visit. Data Data Last Documented VS Vital Signs Date Time Temp Pulse Resp B/P (MAP) Pulse Ox O2 Delivery O2 Flow Rate FiO2 05/30/17 18:04 05/30/17 14:43 97.9 103 22 96 Nasal Cannula Orders Orders Basic Metabolic Panel (Bmp) (05/30/17 15:42) Complete Blood Count With Diff (05/30/17 15:42) Labs Laboratory Tests Test 05/30/17 16:30 White Blood Count 10.1 TH/MM3 Red Blood Count 4.43 MIL/MM3 Hemoglobin 13.3 GM/DL Hematocrit 39.8 % Mean Corpuscular Volume 89.8 FL Mean Corpuscular Hemoglobin 29.9 PG Mean Corpuscular Hemoglobin Concent 33.3 % Red Cell Distribution Width 14.4 % Platelet Count 191 TH/MM3 Mean Platelet Volume 8.1 FL Neutrophils (%) (Auto) 58.3 % Lymphocytes (%) (Auto) 33.0 % Monocytes (%) (Auto) 7.0 % Eosinophils (%) (Auto) 1.2 % Basophils (%) (Auto) 0.5 % Neutrophils # (Auto) 5.9 TH/MM3 Lymphocytes # (Auto) 3.3 TH/MM3 Monocytes # (Auto) 0.7 TH/MM3 Eosinophils # (Auto) 0.1 TH/MM3 Basophils # (Auto) 0.0 TH/MM3 CBC Comment DIFF FINAL Differential Comment Blood Urea Nitrogen 9 MG/DL Creatinine 0.53 MG/DL Random Glucose 94 MG/DL Calcium Level 8.5 MG/DL Sodium Level 135 MEQ/L Potassium Level 4.3 MEQ/L Chloride Level 100 MEQ/L Carbon Dioxide Level 28.6 MEQ/L Anion Gap 6 MEQ/L Estimat Glomerular Filtration Rate 185 ML/MIN [facility] Medical Record Reviewed: Yes Supervised Visit with PELON: No Narrative Course Pt presents to the ED from his PCP with his mother for evaluation. Pt has been told that his urine grew MRSA and he needs a new abx. Pt has longstanding suprapubic catheter and is currently being treated for UTI. He states he is well. His mother states he has been more tired as of late. That being reported, labs are drawn for further evaluation. Laboratory Tests Test 05/30/17 16:30 White Blood Count 10.1 TH/MM3 Red Blood Count 4.43 MIL/MM3 Hemoglobin 13.3 GM/DL Hematocrit 39.8 % Mean Corpuscular Volume 89.8 FL Mean Corpuscular Hemoglobin 29.9 PG Mean Corpuscular Hemoglobin Concent 33.3 % Red Cell Distribution Width 14.4 % Platelet Count 191 TH/MM3 Mean Platelet Volume 8.1 FL Neutrophils (%) (Auto) 58.3 % Lymphocytes (%) (Auto) 33.0 % Monocytes (%) (Auto) 7.0 % Eosinophils (%) (Auto) 1.2 % Basophils (%) (Auto) 0.5 % Neutrophils # (Auto) 5.9 TH/MM3 Lymphocytes # (Auto) 3.3 TH/MM3 Monocytes # (Auto) 0.7 TH/MM3 Eosinophils # (Auto) 0.1 TH/MM3 Basophils # (Auto) 0.0 TH/MM3 CBC Comment DIFF FINAL Differential Comment Blood Urea Nitrogen 9 MG/DL Creatinine 0.53 MG/DL Random Glucose 94 MG/DL Calcium Level 8.5 MG/DL Sodium Level 135 MEQ/L Potassium Level 4.3 MEQ/L Chloride Level 100 MEQ/L Carbon Dioxide Level 28.6 MEQ/L Anion Gap 6 MEQ/L Estimat Glomerular Filtration Rate 185 ML/MIN Labs are without acute concern. Pt urine was collected by nursing staff from lang bag. It is likely that pt is colonized with MRSA, however, we will change his abx to bactrim. His mother reports an appointment with PCP tomorrow. They are advised to keep that appointment. Diagnosis Primary Impression: UTI (urinary tract infection) Qualified Codes: T83.511D - Infection and inflammatory reaction due to indwelling urethral catheter, subsequent encounter; N39.0 - Urinary tract infection, site not specified Additional Impression: Hx MRSA infection Referrals: Primary Care Physician Patient Instructions: Catheter-associated Urinary Tract Infection (ED), General Instructions Additional Instruction: Follow-up with your primary care provider Start Bactrim today and take it until it is all gone Return immediately with any acute worsening symptoms Med/Other Pt SpecificInfo: Prescription(s) given Scripts Sulfamethoxazole-Trimethoprim (Bactrim DS) 800-160 Mg Tab 1 TAB PO BID for Infection, #20 TAB 0 Refills Prov: Ashwini Langston 05/30/17 Disposition: 01 DISCHARGE HOME Condition: Stable Ashwini Langston May 30, 2017 16:06
[2017-05-30 17:01] LABS: AUTOMATED NEUTROPHIL # 5.9 TH/MM3 (1.8-7.7); BASOPHIL % 0.5 % (0.0-2.0); EOSINOPHIL # 0.1 TH/MM3 (0-0.4); EOSINOPHIL % 1.2 % (0.0-4.0); HEMATOCRIT 39.8 % (39.0-51.0); HEMO FLAGS DIFF FINAL; LYMPHOCYTE # 3.3 TH/MM3 (1.0-4.8); MEAN CELL VOLUME 89.8 FL (80.0-100.0); MEAN CORPUSCULAR HEMOGLOBIN 29.9 PG (27.0-34.0); MEAN CORPUSCULAR HGB CONC 33.3 % (32.0-36.0); NEUT % 58.3 % (16.0-70.0); PLATELET COUNT 191 TH/MM3 (150-450); RED BLOOD COUNT 4.43 MIL/MM3 (4.50-5.90); RED CELL DISTRIBUTION WIDTH 14.4 % (11.6-17.2); WHITE BLOOD COUNT 10.1 TH/MM3 (4.0-11.0)
[2017-05-30 17:12] LABS: BICARBONATE 28.6 MEQ/L (21.0-32.0); POTASSIUM 4.3 MEQ/L (3.5-5.1)
[2017-05-30] MEDS ORDERED: BACT800T5 PO (18:04)
== END 2017-05-30 18:14 | disposition home or self-care (01) ==
LOC: NEPD 14:39
DX: T83.511A Infection and inflammatory reaction due to indwelling urethral catheter, initial encounter (principal); N39.0 Urinary tract infection, site not specified; Z86.14 Personal history of Methicillin resistant Staphylococcus aureus infection; J45.909 Unspecified asthma, uncomplicated; I10 Essential (primary) hypertension; Z99.3 Dependence on wheelchair
CPT/HCPCS: 51702; 80048; 85025